=== PATIENT | female | born 1995 | race Caucasian/White ===

== ENCOUNTER → 2019-01-29 | Emergency (ER) | payer OTHER ==
[~2019-01-29] VITALS: Ht 165.1 cm; Wt 71.2 kg
== END | disposition left against medical advice (07) ==
LOC: ER 23:13
DX: Z53.20 Procedure and treatment not carried out because of patient's decision for unspecified reasons (principal)

== ENCOUNTER → 2019-02-28 | Emergency (ER) | payer OTHER ==
[~2019-02-28] VITALS: Ht 157.5 cm; Wt 68.0 kg
== END | disposition home or self-care (01) ==
LOC: ER 21:27
DX: K52.89 Other specified noninfective gastroenteritis and colitis (principal)